=== PATIENT | female | born 1970 | race Caucasian/White ===

== ENCOUNTER → 2020-09-24 | Outpatient (CLI) | payer OTHER ==
[~2020-09-24] MED LIST: ALPR-585 PO; LISI-167 PO; PRAV40TA2 PO; Vitamin D2 PO
== END | disposition home or self-care (01) ==
LOC: STAR 12:01
PROVIDERS: ATTEND Obstetrics & Gynecology Female Pelvic Medicine and Reconstructive Surgery
DX: Z20.822 Contact with and (suspected) exposure to COVID-19 (principal); N93.9 Abnormal uterine and vaginal bleeding, unspecified; N85.2 Hypertrophy of uterus; D25.9 Leiomyoma of uterus, unspecified
CPT/HCPCS: 87635

== ENCOUNTER 2020-09-28 08:32 | Observation (INO) | payer OTHER ==
[~2020-09-28] VITALS: Ht 167.6 cm; Wt 73.0 kg
[~2020-09-28 08:32] MED LIST changes: +BUPIVACAINE/PF 0.25% ONE; +EPINEPHRINE 1 MG/ML, 1ML ONE; +INDIGO CARMINE 0.8%, 5ML ONE
[2020-09-28] MEDS ORDERED: FENTANYL PF 250 MCG/5ML ONE (08:37)
[2020-09-28] MEDS ORDERED: MIDAZOLAM 1 MG/ML, 2ML ONE (08:37)
[2020-09-28] MEDS ORDERED: CHLORHEXIDINE 15 ML UDC MM STA (08:53)
[2020-09-28] MEDS ORDERED: LACTATED RINGERS 1,000 ML IV SCH (09:00)
[2020-09-28 09:31] LABS: HCG UR SG 1.028 (1.003-1.030)
[2020-09-28] MEDS ORDERED: ACETAMINOPHEN 500 MG TABLET PO STA (09:31)
[2020-09-28] MEDS ORDERED: LIDOCAINE 4%, 4 ML SYR/CANN TP ONE (09:44)
[2020-09-28] MEDS ORDERED: PROMETHAZINE 25 MG SUPP PR PRN (10:30)
[2020-09-28] MEDS ORDERED: OXYcodone 5 MG/5 ML ORAL.SOL UDC PO PRN (10:30)
[2020-09-28] MEDS ORDERED: hydrALAzine 20 MG/ML, 1ML IV PRN (10:30)
[2020-09-28] MEDS ORDERED: LABETALOL 5MG/ML, 20ML IV PRN (10:30)
[2020-09-28] MEDS ORDERED: PROMETHAZINE 25 MG/ML, 1ML IVPush PRN (10:30)
[2020-09-28] MEDS ORDERED: LORazepam 2 MG/ML, 1ML IVPush PRN (10:30)
[2020-09-28] MEDS ORDERED: METHOCARBAMOL 1,000 MG in DEXTROSE 5% 100 ML IV PRN (10:30)
[2020-09-28] MEDS ORDERED: ONDANSETRON 2MG/ML, 2ML IVPush PRN ×2 (10:30→11:30)
[2020-09-28] MEDS ORDERED: DEXAMETHASONE 4 MG/ML, 1ML ONE (11:22)
[2020-09-28] MEDS ORDERED: NEOSTIGMINE 1 MG/ML, 10ML ONE (11:22)
[2020-09-28] MEDS ORDERED: SUCCINYLCHOLINE 20 MG/ML, 10ML ONE (11:22)
[2020-09-28] MEDS ORDERED: PROPOFOL 10 MG/ML, 20ML ONE (11:22)
[2020-09-28] MEDS ORDERED: GLYCOPYRROLATE 0.2MG/1ML, 5ML ONE (11:22)
[2020-09-28] MEDS ORDERED: ROCURONIUM 10MG/ML,5ML ONE (11:22)
[2020-09-28] MEDS ORDERED: ONDANSETRON 2MG/ML, 2ML ONE ×2 (11:22→12:44)
[2020-09-28] MEDS ORDERED: CEFAZOLIN 1,000 MG ONE (11:22)
[2020-09-28] MEDS: LACTATED RINGERS 1,000 ML IV SCH ×3 (11:30→21:38)
[2020-09-28] MEDS ORDERED: PROMETHAZINE 25 MG SUPP PR ONE ×3 (11:30→21:04)
[2020-09-28] MEDS ORDERED: FENTANYL PF 100 MCG/2ML ONE (11:41)
[2020-09-28] MEDS: FENTANYL PF 100 MCG/2ML IV PRN ×2 (11:45→12:02)
[2020-09-28] MEDS ORDERED: OXYcodone 5 MG/5 ML ORAL.SOL UDC ONE (12:01)
[2020-09-28] MEDS ORDERED: LORazepam 2 MG/ML, 1ML ONE (12:16)
[2020-09-28] MEDS: IBUPROFEN 600 MG TABLET PO PRN ×2 (14:52→22:58)
[2020-09-28] MEDS: HYDROmorphone 1 MG/ML, 1ML INJ IVPush PRN ×2 (14:57→17:00)
[2020-09-28] MEDS ORDERED: METOCLOPRAMIDE 5 MG/ML, 2ML IVPush ONE (18:00)
[2020-09-28] MEDS ORDERED: SCOPOLAMINE 1MG PATCH TD ONE (18:00)
[2020-09-28] MEDS: HYDROcodone/APAP 5/325 TABLET PO PRN (19:46)
[2020-09-28 22:00] VITALS: BP 140/92
[2020-09-29] MEDS: HYDROcodone/APAP 5/325 TABLET PO PRN ×3 (00:49→10:29)
[2020-09-29 03:39] VITALS: BP 107/71
[2020-09-29 08:04] VITALS: BP 101/69
[2020-09-29 09:25] VITALS: BP 117/76
== END 2020-09-29 11:20 | disposition home or self-care (01) ==
LOC: OUT 08:32 → ORIP 21:06 → 4NE 21:15 → DCLOUNGE 09-29 11:12
PROVIDERS: ADMIT Obstetrics & Gynecology Female Pelvic Medicine and Reconstructive Surgery; ATTEND Obstetrics & Gynecology Female Pelvic Medicine and Reconstructive Surgery
DX: D25.9 Leiomyoma of uterus, unspecified (principal); N94.10 Unspecified dyspareunia; L28.0 Lichen simplex chronicus; N83.00 Follicular cyst of ovary, unspecified side; N92.0 Excessive and frequent menstruation with regular cycle; N94.6 Dysmenorrhea, unspecified; I10 Essential (primary) hypertension; F41.8 Other specified anxiety disorders; Z79.899 Other long term (current) drug therapy
CPT/HCPCS: 57268; 58573; 58662; 81025; 88305; 88307; 96361; 96374; G0378; J0171; J0690; J1100; J1170; J2060; J2250; J2405; J2704; J2710; J2765; J2800; J3010; J7120; J0330